=== PATIENT | male | born 1950 | race Caucasian/White ===

== ENCOUNTER 2018-08-29 07:33 | Day surgery (SDC) | payer OTHER ==
[~2018-08-29] VITALS: Ht 170.2 cm; Wt 78.5 kg
[~2018-08-29 07:33] MED LIST: AMLO10 PO; ASPI325 PO; ATEN100 PO; BUPR150ER PO; CIPR500 PO; CLON.1 PO; CYAN100 PO; FOLI1 PO; HYDCHL25 PO; LISI10 PO; LOSA50 PO; MILK THISTLE; MULVITA PO; NAPR500 PO; NIAC500 PO; OMEGA 3; TAMS.4ER PO; TEMA30 PO; [UNRECOGNIZED DRUG - CODE] PO
== END 2018-08-29 09:37 | disposition home or self-care (01) ==
LOC: ORSCSDS 07:33
PROVIDERS: Internal Medicine Gastroenterology
PROC: 0DBL8ZX Excision of Transverse Colon, Via Natural or Artificial Opening Endoscopic, Diagnostic (ICD-10-PCS; principal; 2018-08-29 08:45)
PROC: 0DBH8ZX Excision of Cecum, Via Natural or Artificial Opening Endoscopic, Diagnostic (ICD-10-PCS; principal; 2018-08-29 08:45)
PROC: 0DBN8ZX Excision of Sigmoid Colon, Via Natural or Artificial Opening Endoscopic, Diagnostic (ICD-10-PCS; principal; 2018-08-29 08:45)
PROC: 0DBM8ZX Excision of Descending Colon, Via Natural or Artificial Opening Endoscopic, Diagnostic (ICD-10-PCS; principal; 2018-08-29 08:45)
DX: Z12.11 Encounter for screening for malignant neoplasm of colon (principal); D12.0 Benign neoplasm of cecum; D12.3 Benign neoplasm of transverse colon; D12.4 Benign neoplasm of descending colon; K63.5 Polyp of colon; K64.8 Other hemorrhoids; K57.30 Diverticulosis of large intestine without perforation or abscess without bleeding; Z86.010 Personal history of colon polyps; Z86.19 Personal history of other infectious and parasitic diseases; I10 Essential (primary) hypertension; E78.5 Hyperlipidemia, unspecified; Z86.73 Personal history of transient ischemic attack (TIA), and cerebral infarction without residual deficits; F17.210 Nicotine dependence, cigarettes, uncomplicated; F32.9 Major depressive disorder, single episode, unspecified; Z79.82 Long term (current) use of aspirin; Z79.899 Other long term (current) drug therapy
CPT/HCPCS: 88305; J1980; J2704; J7120

== ENCOUNTER → 2019-08-10 | Outpatient (CLI) | payer OTHER | LOC: PLD 12:41 → LAB SHORT 12:41 | DX: D04.71 Carcinoma in situ of skin of right lower limb, including hip (principal); L57.0 Actinic keratosis | CPT/HCPCS: 88305 ==

== ENCOUNTER 2019-12-06 09:57 | Emergency (ER) | payer OTHER ==
[~2019-12-06] VITALS: Ht 170.2 cm; Wt 79.4 kg
[~2019-12-06 09:57] MED LIST changes: +HYDR1TAB94 PO; +METPRE4DP PO; +Robaxin-750750 MG PO; +TRAM50 PO
[2019-12-06] MEDS ORDERED: Percocet 5-3251 EACH PO (10:39)
[2019-12-06] MEDS ORDERED: LIDO700A20 TOP (10:39)
[2019-12-08] MEDS ORDERED: IBUP600 PO (19:57)
[2019-12-08] MEDS ORDERED: CYCL10 PO (19:57)
== END 2019-12-06 11:00 | disposition home or self-care (01) ==
LOC: ER 09:57
DX: M54.12 Radiculopathy, cervical region (principal); Z88.6 Allergy status to analgesic agent; Z88.1 Allergy status to other antibiotic agents; Z88.8 Allergy status to other drugs, medicaments and biological substances; Z79.899 Other long term (current) drug therapy; Z79.82 Long term (current) use of aspirin; I10 Essential (primary) hypertension; E78.00 Pure hypercholesterolemia, unspecified; F32.9 Major depressive disorder, single episode, unspecified; J44.9 Chronic obstructive pulmonary disease, unspecified; Z86.73 Personal history of transient ischemic attack (TIA), and cerebral infarction without residual deficits; Z86.19 Personal history of other infectious and parasitic diseases; F17.200 Nicotine dependence, unspecified, uncomplicated
CPT/HCPCS: 99283

== ENCOUNTER 2023-04-08 18:42 | Inpatient (IN) | payer OTHER ==
[~2023-04-08] VITALS: Ht 170.2 cm; Wt 86.3 kg
[~2023-04-08 18:42] MED LIST changes: +ASPI81CH PO; +ATOR80 PO; +CLOP75 PO; +CYCL10 PO; +GABA800 PO; +IBUP600 PO; +LIDO700A20 TOP; +LOSARTAN-HCTZ1 EAC5 PO; +PRAV20 PO; +Percocet 5-3251 EACH PO
[2023-04-08 19:05] LABS: BASOPHILS ABSOLUTE AUTO 0.14 K/mm3 (0.00-0.23); BASOPHILS PERCENT AUTO 2 % (0-2); EOSINOPHILS ABSOLUTE AUTO 0.26 K/mm3 (0.00-0.68); EOSINOPHILS PERCENT AUTO 3 % (0-6); Hematocrit 48.6 % (37.0-53.0); IMMATURE GRAN ABSOLUTE AUTO 0.01 K/mm3 (0.00-0.10); IMMATURE GRAN PERCENT AUTO 0 % (0-1); LYMPHOCYTES ABSOLUTE AUTO 1.45 K/mm3 (0.84-5.20); LYMPHOCYTES PERCENT AUTO 17 % (21-46); MONOCYTES ABSOLUTE AUTO 0.68 K/mm3 (0.16-1.47); MONOCYTES PERCENT AUTO 8 % (4-13); Mean Corpuscular HGB 32.2 pg (26.0-34.0); Mean Corpuscular Volume 92 fL (80-100); Mean Platelet Volume 10.5 fL (9.1-12.4); NEUTROPHILS ABSOLUTE AUTO 5.79 K/mm3 (1.96-9.15); NEUTROPHILS PERCENT AUTO 70 % (41-73); Platelet Count 218 K/mm3 (150-400); RDW Coefficient Variation 12.6 % (11.7-14.2); RDW Standard Deviation 42.7 fL (35.1-46.3); Red Blood Cell Count 5.28 M/mm3 (4.30-5.90); White Blood Cell Count 8.33 K/mm3 (4.00-11.30)
[2023-04-08 19:31] LABS: Alanine Aminotransfer (ALT/SGP 30 U/L (12-78); Albumin, Blood 3.6 g/dL (3.4-5.0); Alk Phos 69 U/L (50-136); Anion Gap 6 mmol/L (6-16); Aspartate Aminotrans (AST/SGOT 26 U/L (12-37); Bilirubin, Total 0.8 mg/dL (0.1-1.0); Blood Urea Nitrogen 23 mg/dL (8-24); Bun/Creatinine Ratio 14.1 (12.0-20.0); CO2, Blood 23 mmol/L (21-32); Calcium, Blood 9.1 mg/dL (8.5-10.1); Chloride, Blood 113 mmol/L (98-108); Creatinine, Blood 1.63 mg/dL (0.60-1.20); Globulin, Blood 3.7 g/dL (2.2-4.0); Glomerular Filtration Rate 44 (60-); Glucose, Blood 104 mg/dL (70-99); Potassium, Blood 4.3 mmol/L (3.5-5.5); Sodium, Blood 142 mmol/L (136-145); Total Protein, Blood 7.3 g/dL (6.4-8.2)
[2023-04-08 22:28] LABS: Source, Urine Clean Catch
[2023-04-08 22:32] LABS: CHOL/HDL RATIO 2.3; Cholesterol 98 mg/dL (50-200); HDL Cholesterol 42 mg/dL (>39); LDL/HDL RATIO 0.8; Low Density Lipoprotein Chol 35 mg/dL (0-110); Triglycerides 107 mg/dL (30-160); Very Low Density Lipoprot Chol 21 mg/dL (6-32)
[2023-04-08 23:16] LABS: Bilirubin, Urine Neg (Neg); Blood, Urine 1+ (Neg); Glucose Qualitative, Urine 1+ (Neg); Ketones, Urine 1+ (Neg); Leukocyte Esterase, Urine Neg (Neg); Nitrite, Urine Neg (Neg); Protein, Urine Neg (Neg); Specific Gravity, Urine 1.025 (1.003-1.022); Urobilinogen, Urine NORM (Normal)
[2023-04-08] MEDS ORDERED: ELIQUIS5 M2 PO (23:22)
[2023-04-08] MEDS ORDERED: BUPROPION XL450 MG PO (23:25)
[2023-04-08 23:29] VITALS: BP 179/100
[2023-04-08 23:30] LABS: Appearance, Urine Clear (Clear); Color, Urine Yellow (P-Yellow)
[2023-04-08 23:31] LABS: Bacteria Few /hpf; Red Blood Cells, Urine 0-2 /hpf (0-2); Squamous Epithelial Cells Rare /hpf (Few); White Blood Cells, Urine 0-2 /hpf (0-5)
[2023-04-09 04:23] VITALS: BP 154/93
--- NOTE | 2023-04-09 05:55 | NUR ---
SHIFT SUMMARY 72 YR M ADMITTED ON 04/08/23 FOR ARTERIAL ISCHEMIC STROKE, MCA, LEFT ACUTE. FULL CODE. NO ACUTE CHANGES THIS SHIFT. PT IS CONFUSED AND UNABLE TO ANSWER SIMPLE QUESTIONS. HE TRIES, BUT HIS ANSWERS ARE WRONG AND SOME OF THE WORDS HE SAYS DO NOT MAKE SENSE. HIS DAUGHTER WAS WITH HIM WHEN HE WAS ADMITTED AND STATES THAT HE IS NORMALLY A&O X4 AND LIVES INDEPENDANTLY ALONE. AFTER BEING ADMITTED AND ASSESSED, PT SLEPT FOR THE REST OF THE SHIFT.
[2023-04-09 07:20] VITALS: BP 185/102
[2023-04-09 07:21] VITALS: BP 169/104
--- NOTE | 2023-04-09 20:09 | NUR ---
SHIFT SUMMARY: TOSHIA IS A&OX 1-2. PT INTERACTED APPROPRIATELY WITH HIS CHILDREN AT BEDSIDE TODAY. HE IS TOLERATING PO INTAKE WELL, IV TO L FA PATENT, STANDBY ASSIST IN THE ROOM. PT REPORTS NO DIFFICULTY WITH URINATION AND AFFIRMED THAT HE HAD A BOWEL MOVEMENT TODAY. AWAITING SPEECH EVAL TOMORROW, PT AND OT EVALS COMPLETED TODAY. PT HAS BEEN PLEASANT AND COOPERATIVE WITH STAFF. HE IS LYING IN BED WITH THE CALL LIGHT IN REACH. PT HAS BEEN ABLE TO CORRECTLY INDENTIFY WHICH BUTTON TO PRESS FOR ASSISTANCE ON THE CALL LIGHT. BED ALARM IN PLACE FOR SAFETY. EXPRESSIVE APHASIA NOTED. REPORT WAS GIVEN TO FLIGHT SURVEYOR RN.
[2023-04-09 20:25] VITALS: BP 194/97
--- NOTE | 2023-04-09 22:36 | NUR ---
BP ELEVATED NOTE BP 194/97. ASYMPTOMATIC. NOTED NO ANTIHYPERTENSIVE MEDS ON EMAR. NOTE READING DR TRONCOSO NOTE TO 'ALLOW PERMISSIVE SBP <220' OF 04/09/23 AT 0732. WILL CONT TO MONITOR/ASSESS. CALL LIGHT IN REACH.
--- NOTE | 2023-04-09 23:16 | NUR ---
GRIEVANCE AND APPEALS SPECIALIST SUMMARY BP REMAINS ELEVATED, BUT MD WHO ASSESSED HIM EARLIER, DOCUMENTED WILL CONTINUE WITH PERMISSIVE HYPERTENSION. THAT LONG SBP WAS LESS THAN 220, HS BP WAS 194/97. VERBAL: EXPRESSIVE APHASIA. NO NOTED DIFFERENCE OF RIGHT/LEFT SIDE REGIONAL DIRECTOR OF FINANCE, PLANTAR OR DORSI FLEXION. PUPILS EQUAL AND ROUND, SLOW TO RESPOND. WILL CONTINUE TO DO NEURO CHECKS. RESTING QUIETLY WITH NO NOTED ACUTE DISTRESS OTHERWISE. CALL LIGHT IN REACH. BED ALARM ON FOR SAFETY
[2023-04-10 00:03] VITALS: BP 174/97
--- NOTE | 2023-04-10 04:48 | NUR ---
BP TRENDING DOWN - SEE DOC FLOW SHEETS FOR DETAILS. WAS ASSISTED UP TO THE BATHROOM, NOTED SOME LEANING TO THE RIGHT HE AMBULATED TO THE BATHROOM. EXPRESSIVE APHASIA CONTINUES. WILL CONTINUE TO MONITOR
[2023-04-10 05:15] VITALS: BP 194/103
[2023-04-10 05:45] LABS: BASOPHILS ABSOLUTE AUTO 0.13 K/mm3 (0.00-0.23); BASOPHILS PERCENT AUTO 2 % (0-2); EOSINOPHILS ABSOLUTE AUTO 0.26 K/mm3 (0.00-0.68); EOSINOPHILS PERCENT AUTO 3 % (0-6); Hematocrit 46.9 % (37.0-53.0); Hemoglobin 16.5 g/dL (13.5-17.5); IMMATURE GRAN ABSOLUTE AUTO 0.02 K/mm3 (0.00-0.10); IMMATURE GRAN PERCENT AUTO 0 % (0-1); LYMPHOCYTES ABSOLUTE AUTO 1.62 K/mm3 (0.84-5.20); LYMPHOCYTES PERCENT AUTO 19 % (21-46); MONOCYTES ABSOLUTE AUTO 0.79 K/mm3 (0.16-1.47); MONOCYTES PERCENT AUTO 9 % (4-13); Mean Corpuscular HGB 32.5 pg (26.0-34.0); Mean Corpuscular HGB Conc 35.2 g/dL (31.5-36.5); Mean Corpuscular Volume 93 fL (80-100); Mean Platelet Volume 10.7 fL (9.1-12.4); NEUTROPHILS ABSOLUTE AUTO 5.61 K/mm3 (1.96-9.15); NEUTROPHILS PERCENT AUTO 67 % (41-73); Platelet Count 190 K/mm3 (150-400); RDW Coefficient Variation 12.5 % (11.7-14.2); RDW Standard Deviation 42.4 fL (35.1-46.3); Red Blood Cell Count 5.07 M/mm3 (4.30-5.90); White Blood Cell Count 8.43 K/mm3 (4.00-11.30)
[2023-04-10 06:31] LABS: Albumin, Blood 3.3 g/dL (3.4-5.0); Albumin/Globulin Ratio 0.9 (0.8-1.8); Bilirubin, Total 0.6 mg/dL (0.1-1.0); Bun/Creatinine Ratio 15.8 (12.0-20.0); Calcium, Blood 8.8 mg/dL (8.5-10.1); Creatinine, Blood 1.46 mg/dL (0.60-1.20); Globulin, Blood 3.5 g/dL (2.2-4.0); Potassium, Blood 3.4 mmol/L (3.5-5.5); Total Protein, Blood 6.8 g/dL (6.4-8.2)
[2023-04-10 07:29] VITALS: BP 185/103
[2023-04-10] MEDS ORDERED: CLOP75 PO (12:39)
[2023-04-10 15:46] VITALS: BP 162/102
--- NOTE | 2023-04-10 16:25 | NUR ---
SHIFT SUMMARY AND DISCHARGE PATIENT DISCHARGED HOME WITH DAUGHTER. PATIENT ALERT AND ABLE TO VERBALIZE NEEDS. BALANCE UNSTEADY AT TIMES. PATIENT HAS DIFFICULTY WITH MEMORY AND ANSWERING COMPLEX QUESTIONS. DISCHARGE INSTRUCTIONS REVIEWED WITH PATIENT AND DAUGHTER. IV DC'D PRIOR TO DISCHARGE. ZIO PATCH PLACED PRIOR TO DISCHARGE. BELONGINGS RETURNED TO PATIENT. ROOM CHECK DONE PRIOR TO PATIENT DISCHARGING. PATIENT TRASPORTED OUT VIA WHEELCHAIR BY IT TELECOM TECHNICIAN.
== END 2023-04-10 16:19 | disposition home or self-care (01) | DRG 64 ==
LOC: ER 18:42 → MEDS 18:43 → ENPENDDIS 04-10 10:43 → MEDS 04-10 16:19
PROVIDERS: Physician Assistant; ADMIT Internal Medicine
DX: I63.512 Cerebral infarction due to unspecified occlusion or stenosis of left middle cerebral artery (principal); I61.9 Nontraumatic intracerebral hemorrhage, unspecified; E78.00 Pure hypercholesterolemia, unspecified; F32.A Depression, unspecified; J44.9 Chronic obstructive pulmonary disease, unspecified; I12.9 Hypertensive chronic kidney disease with stage 1 through stage 4 chronic kidney disease, or unspecified chronic kidney disease; E78.5 Hyperlipidemia, unspecified; B19.20 Unspecified viral hepatitis C without hepatic coma; N18.32 Chronic kidney disease, stage 3b; R47.01 Aphasia; R29.706 NIHSS score 6; Z98.52 Vasectomy status; Z98.890 Other specified postprocedural states; Z79.899 Other long term (current) drug therapy; Z88.1 Allergy status to other antibiotic agents; Z88.8 Allergy status to other drugs, medicaments and biological substances; Z79.82 Long term (current) use of aspirin; Z79.02 Long term (current) use of antithrombotics/antiplatelets; Z87.891 Personal history of nicotine dependence
CPT/HCPCS: 36415; 70450; 80053; 80061; 81001; 83036; 84443; 85025; 92523; 93005; 93010; 93246; 93306; 93880; 96372; 97112; 97161; 97166; 97535; 99285-25; A9270; G0378; J1650

== ENCOUNTER 2023-11-07 11:46 | Emergency (ER) | payer OTHER ==
[~2023-11-07] VITALS: Ht 175.3 cm; Wt 76.2 kg
[~2023-11-07 11:46] MED LIST changes: +Ativan1 MG PO; +BUPROPION XL450 MG PO; +ELIQUIS5 M2 PO; +LOSARTAN POTAS100 M1 PO; +MORP20L SL
[2023-11-07 12:37] LABS: BASOPHILS ABSOLUTE AUTO 0.16 K/mm3 (0.00-0.23); BASOPHILS PERCENT AUTO 4 % (0-2); EOSINOPHILS PERCENT AUTO 7 % (0-6); Hematocrit 43.8 % (37.0-53.0); Hemoglobin 15.1 g/dL (13.5-17.5); IMMATURE GRAN PERCENT AUTO 0 % (0-1); LYMPHOCYTES ABSOLUTE AUTO 0.92 K/mm3 (0.84-5.20); LYMPHOCYTES PERCENT AUTO 23 % (21-46); MONOCYTES ABSOLUTE AUTO 0.41 K/mm3 (0.16-1.47); MONOCYTES PERCENT AUTO 10 % (4-13); Mean Corpuscular HGB Conc 34.5 g/dL (31.5-36.5); Mean Corpuscular Volume 87 fL (80-100); Mean Platelet Volume 11.3 fL (9.1-12.4); NEUTROPHILS ABSOLUTE AUTO 2.29 K/mm3 (1.96-9.15); NEUTROPHILS PERCENT AUTO 56 % (41-73); Platelet Count 193 K/mm3 (150-400); RDW Coefficient Variation 13.5 % (11.7-14.2); RDW Standard Deviation 43.2 fL (35.1-46.3); Red Blood Cell Count 5.04 M/mm3 (4.30-5.90); White Blood Cell Count 4.08 K/mm3 (4.00-11.30)
[2023-11-07 12:52] LABS: Albumin, Blood 3.8 g/dL (3.4-5.0); Bilirubin, Total 0.8 mg/dL (0.1-1.0); Bun/Creatinine Ratio 14.7 (12.0-20.0); Calcium, Blood 9.9 mg/dL (8.5-10.1); Creatinine, Blood 1.56 mg/dL (0.60-1.20); Total Protein, Blood 7.8 g/dL (6.4-8.2)
[2023-11-07] MEDS ORDERED: Potassium Chloride 20 MEQ TabCR PO ONE (13:45)
[2023-11-07 15:30] VITALS: BP 148/70
== END 2023-11-07 17:44 | disposition home or self-care (01) ==
LOC: ER 11:46
PROVIDERS: Student in an Organized Health Care Education/Training Program
DX: R20.2 Paresthesia of skin (principal); E87.6 Hypokalemia; F17.200 Nicotine dependence, unspecified, uncomplicated; I10 Essential (primary) hypertension; E78.00 Pure hypercholesterolemia, unspecified; Z86.73 Personal history of transient ischemic attack (TIA), and cerebral infarction without residual deficits; Z79.899 Other long term (current) drug therapy; Z88.1 Allergy status to other antibiotic agents; Z88.6 Allergy status to analgesic agent; Z88.8 Allergy status to other drugs, medicaments and biological substances
CPT/HCPCS: 70450; 70496; 70498; 80053; 83735; 83880; 84484; 85025; 93005; 93010; 99284-25; A9270; Q9967